=== PATIENT | female | born 1970 | race Caucasian/White ===

== ENCOUNTER 2024-01-30 15:42 | Emergency (ER) | payer MEDICARE, OTHER ==
[~2024-01-30] VITALS: Ht 154.9 cm; Wt 57.4 kg
[2024-01-30] MEDS ORDERED: ACETAMINOPHEN500 MG PO (16:23)
[2024-01-30] MEDS ORDERED: KETOCONAZOLE120 ML TOP (16:23)
[2024-01-30] MEDS ORDERED: LORATADINE10 MG PO (16:23)
[2024-01-30] MEDS ORDERED: LEVOTHYROXINE75 MCG PO (16:23)
[2024-01-30] MEDS ORDERED: KETOCONAZOLE15 GM (16:24)
[2024-01-30 17:07] LABS: BASOPHILS 1.1 % (0-2); EOSINOPHILS 1.2 % (0-6); HEMATOCRIT 38.6 % (35.0-50.0); HEMOGLOBIN 13.3 g/dL (12.0-18.0); LYMPHOCYTES 36.4 % (24-44); MCH 33.3 (27-36); MCHC 34.4 g/dl (30-36); MCV 96.8 fl (81-99); MONOCYTES 12.3 % (0-12); PLATELET COUNT 207 K/uL (140-440); RBC 3.99 M/ul (4.3-5.7); RDW 13.4 (10.5-15.0)
[2024-01-30 17:15] LABS: ALBUMIN 3.3 g/dL (3.4-5.0); ALBUMIN/GLOBULIN RATIO 0.83 (1.1-2.4); ANION GAP 7.9 (7-21); BILIRUBIN, TOTAL 0.4 ng/dL (0.2-1.0); BUN/CREATININE RATIO 22.61 (6.0-28.6); CALCIUM 8.9 mg/dL (8.5-10.1); CREATININE, SERUM 0.84 mg/dL (0.55-1.02); POTASSIUM 3.9 mmol/L (3.5-5.1); PROTEIN, TOTAL 7.3 g/dL (6.4-8.2)
[2024-01-30 18:12] LABS: BILIRUBIN, URINE NEGATIVE (negative); BLOOD/HGB, URINE NEGATIVE (Negative); KETONE, URINE NEGATIVE (Negative); LEUK ESTERASE, URINE NEGATIVE (negative); NITRITE, URINE NEGATIVE (negative)
[2024-01-30] MEDS ORDERED: SODIUM CHLORIDE 0.9% 1,000 ML IV ONE (18:15)
[2024-01-30] MEDS ORDERED: ondansetron HCL 4 MG/2 ML VIAL IV ONE (18:15)
[2024-01-30] MEDS ORDERED: HYDROmorphone HCL 1 MG/ML SYR IV PRN (18:15)
[2024-01-30] MEDS ORDERED: ONDANSETRON ODT8 MG PO (19:21)
[2024-01-30] MEDS ORDERED: ACETAMINOPHEN 500 MG TAB PO ONE (19:30)
[2024-01-30] MEDS ORDERED: ONDANSETRON 4 MG HOME.PACK SL ONE (19:30)
[2024-01-30 19:42] VITALS: BP 124/69
== END 2024-01-30 19:46 | disposition home or self-care (01) ==
LOC: ED 15:42
PROVIDERS: Emergency Medicine
DX: R10.31 Right lower quadrant pain (principal); E03.9 Hypothyroidism, unspecified; Q90.9 Down syndrome, unspecified; E78.5 Hyperlipidemia, unspecified; Z91.010 Allergy to peanuts; Z79.890 Hormone replacement therapy; Z79.899 Other long term (current) drug therapy; Z98.890 Other specified postprocedural states
CPT/HCPCS: 36415; 74177; 80053; 81003; 83690; 84703; 85025; 99284-25; A9270; J2405; J7030; Q9967

== ENCOUNTER 2024-04-18 07:40 | Day surgery (SDC) | payer MEDICARE, OTHER ==
[2024-04-15 13:50] VITALS: BP 101/49
[~2024-04-18] VITALS: Ht 154.9 cm; Wt 55.0 kg
[~2024-04-18 07:40] MED LIST: ACETAMINOPHEN500 MG PO; IBLOOD GLUCOSE TEST STRIP 1 EA TEST VI PRN; KETOCONAZOLE120 ML TOP; KETOCONAZOLE15 GM; LACTATED RINGER'S 1,000 ML IV SCH; LEVOTHYROXINE75 MCG PO; LIDOCAINE HCL 1% 5 ML SDV INJ ONE; LORATADINE10 MG PO; MIDAZOLAM HCL 5 MG/5 ML VIAL IV PRN; ONDANSETRON ODT8 MG PO; fentaNYL citrate 100 MCG/2 ML VIAL IV PRN
[2024-04-18 07:47] VITALS: BP 104/41
[2024-04-18] MEDS ORDERED: VITAMIN D325 MCG PO (07:53)
[2024-04-18] MEDS ORDERED: propofoL 200 MG/20 ML VIAL ONE (08:17)
[2024-04-18] MEDS ORDERED: LIDOCAINE HCL 2% 5 ML SDV ONE (08:17)
--- NOTE | 2024-04-18 09:16 | NUR ---
04/18/24 0916 Camelia Santiago 0902- PT ARRIVES TO THE PACU WITH A NATURAL AIRWAY ON 6L OF O2 VIA MASK. BREATHING IS EVEN AND UNLABORED. ALL MONITORS PUT IN PLACE. LR INFUSING IN R HAND. PT IS LAYING ON LEFT SIDE AND PT'S ABDOMEN IS SOFT AND NONDISTENDED. PT IS RESTING AND NON REACTIVE TO VERBAL STIMULI. VSS. 0913- PT BEGINS TO BRING HAND UP TO HER FACE. PT IS ABLE TO RESPOND TO QUESTIONS AND DENIES PAIN AND NAUSEA. O2 TURNED OFF AND REMOVED. PT ENCOURAGED TO PASS GAS. PT RESTING.
--- NOTE | 2024-04-18 09:41 | OR ---
[facility] [address], [place] [address] Signed DATE OF OPERATION: 04/18/2024 SURGEON: Kamron Tovar MD PREOPERATIVE DIAGNOSIS: Cologuard positive stool. POSTOPERATIVE DIAGNOSES: 1. 5 mm polyp at 40 cm in left colon. 2. Minimal to moderate internal hemorrhoids. PROCEDURES: Colonoscopy with hot biopsy. ESTIMATED BLOOD LOSS: None. INDICATIONS: Camille is a 53-year-old female with Down syndrome. She lives at a local skilled nursing. She recently had a Cologuard sample come back positive. She therefore was asked to see me as a local general surgeon for a colonoscopy. She came to the office with a caregiver. She does not seem to have any lower GI complaints. We are not aware of any family history of colon cancer or polyps. In the office, I gave them a brochure on colonoscopy. We reviewed the nature of the test. There is risk including, but not limited to gas bloating, crampy abdominal pain, bleeding, perforation requiring surgery, and missed diagnosis. We also reviewed the written instructions for the bowel prep line by line. The local skilled nursing and the caregivers are quite familiar with my bowel prep. In addition, we talked about sedation. Camille told me that she absolutely has to be completely asleep before anyone would do a colonoscopy. Her caregiver was in agreement. Seems to be quite neff given her Down syndrome and so forth. We did have her undergo some preoperative blood work and an EKG. The caregiver will be taking her home afterwards. She had expressed understanding and wished to proceed. PROCEDURE IN DETAIL: Camille was taken into our endoscopy suite and placed in the left lateral decubitus position. She was given monitored anesthesia care, propofol infusion per our nurse emergency dispatcher. In fact, she did ask about going to sleep before the procedure once again. After she was adequately sedated, a digital rectal exam was performed. Really not much in the way of any external hemorrhoids. She had good sphincter tone. There were no masses. The adult colonoscope was introduced and advanced all the way around into the Electronically Signed By: KAMRON TOVAR MD 04/18/24 0941 PATIENT NAME: CAMILLE BLAS OPERATIVE REPORT DATE OF : 70 REPORT #: [id number] PHYSICIAN: KAMRON TOVAR MD PCP: JER WATTS DO REPORT IS CONFIDENTIAL AND NOT TO BE RELEASED WITHOUT AUTHORIZATION [facility] [address], [place] [address] Signed cecum under direct visualization of camera without difficulty. The prep was quite good. The scope was slowly withdrawn. We used a hot biopsy forceps to remove the single 5 mm polyp back at 40 cm in the left colon. There was no diverticulosis. The rectum was unremarkable. Upon retroflexion of scope she does have minimal to moderate internal hemorrhoids. I suspect hemorrhoids are the source of her positive Cologuard. After this, the gas was suctioned out. The colonoscope removed. Camille tolerated the procedure quite well. RECOMMENDATIONS: I will see Camille back in my office in 7 to 14 days to review the pathology results. Kamron Tovar MD ALB/MODL /[id number] cc: DO Kamron Conway MD Copies: JER WATTS ANDREW L MD ~ Electronically Signed By: KAMRON TOVAR MD 04/18/24 0941 PATIENT NAME: CAMILLE BLAS OPERATIVE REPORT DATE OF : 70 REPORT #: [id number] PHYSICIAN: KAMRON TOVAR MD PCP: JER WATTS DO REPORT IS CONFIDENTIAL AND NOT TO BE RELEASED WITHOUT AUTHORIZATION
[2024-04-18 10:02] VITALS: BP 103/65
== END 2024-04-18 10:34 | disposition home or self-care (01) ==
LOC: DS 07:40
PROVIDERS: ATTEND Colon & Rectal Surgery
PROC: 0DBG8ZX Excision of Left Large Intestine, Via Natural or Artificial Opening Endoscopic, Diagnostic (ICD-10-PCS; principal; 2024-04-18 08:45)
DX: D12.6 Benign neoplasm of colon, unspecified (principal); K64.8 Other hemorrhoids; Q90.9 Down syndrome, unspecified; E03.9 Hypothyroidism, unspecified; E78.00 Pure hypercholesterolemia, unspecified; K63.5 Polyp of colon
CPT/HCPCS: 00811; 88305; J2003; J2704; J7121